=== PATIENT | female | born 1985 | race African-American/Black ===

== ENCOUNTER → 2024-07-09 | Outpatient (CLI) | payer OTHER | LOC: M EKG 08:21 | PROVIDERS: ATTEND Internal Medicine | DX: R00.0 Tachycardia, unspecified (principal); R00.1 Bradycardia, unspecified ==

== ENCOUNTER → 2024-09-01 | Outpatient (CLI) | payer OTHER ==
[~2024-09-01] MED LIST: PROHANCE 279.3MG/ML 15ML VIAL ONE; PROHANCE 279.3MG/ML 5ML VIAL ONE
== END ==
LOC: EDUNIT# 07-27 13:00 → M PLAIMG 09:50
PROVIDERS: ATTEND Internal Medicine
DX: D25.9 Leiomyoma of uterus, unspecified (principal)

== ENCOUNTER 2024-09-16 14:47 | Outpatient (CLI) | payer OTHER ==
[~2024-09-16] VITALS: Ht 167.6 cm; Wt 95.9 kg
[~2024-09-16 14:47] MED LIST changes: +ALBUTEROL SULFATE 2.5MG/0.5ML INH NEB SOLN INH PRN; +EPINEPHrine INJ 1 MG/ML 1ML AMP IM PRN; -PROHANCE 279.3MG/ML 15ML VIAL ONE; -PROHANCE 279.3MG/ML 5ML VIAL ONE; +diphenhydrAMINE 50MG/ML VIAL IV PRN; +methylPREDNISolone 125MG 2ML VIAL IV PRN
[2024-09-16 15:00] VITALS: BP 123/57; O2SAT 100
[2024-09-16] MEDS ORDERED: NS (Normal Saline) 0.9% 1,000 ML IV SCH (15:00)
[2024-09-16] MEDS: FERRIC CARBOXYMALTOSE 750 MG (VIAL MATE) IN 100ML NS IV ONE (15:14)
== END 2024-09-16 15:50 ==
LOC: M INFU 14:47
PROVIDERS: ATTEND Internal Medicine
DX: D50.9 Iron deficiency anemia, unspecified (principal)
CPT/HCPCS: 96365; J1439

== ENCOUNTER 2024-09-26 15:25 | Outpatient (CLI) | payer OTHER ==
[~2024-09-26] VITALS: Ht 167.6 cm; Wt 96.4 kg
[~2024-09-26 15:25] MED LIST changes: +NS (Normal Saline) 0.9% 1,000 ML IV SCH
[2024-09-26 15:39] VITALS: BP 127/65; O2SAT 100
[2024-09-26] MEDS: FERRIC CARBOXYMALTOSE 750 MG (VIAL MATE) IN 100ML NS IV ONE (15:44)
[2024-09-26 16:04] VITALS: BP 125/71; O2SAT 100
== END 2024-09-26 16:05 | disposition home or self-care (01) ==
LOC: M INFU 15:25
PROVIDERS: ATTEND Internal Medicine
DX: D50.9 Iron deficiency anemia, unspecified (principal)
CPT/HCPCS: 96365; J1439

== ENCOUNTER 2024-10-20 17:05 | Emergency (ER) | payer OTHER ==
[~2024-10-20] VITALS: Ht 167.6 cm; Wt 96.3 kg
[2024-10-20 17:40] LABS: KETONE, URINE AUTO RFX NEGATIVE (NEGATIVE); LEUKOCYTE ESTERASE UR AUTO RFX NEGATIVE (NEGATIVE); MUCUS, URINE RFX SMALL (NEGATIVE); NITRITE, URINE AUTO RFX NEGATIVE (NEGATIVE); RBC, URINE AUTO RFX 7 /HPF (0-3); SQUAM EPITHELIAL CELL UR AURFX 4 /HPF (0-6); WBC, URINE AUTO RFX 1 /HPF (0-3)
[2024-10-20] MEDS ORDERED: ONDA-282 PO (21:05)
[2024-10-20] MEDS ORDERED: KETO10TAB PO (21:05)
[2024-10-20] MEDS: KETOROLAC 30 MG/ML 1ML VIAL IM ONE (21:13)
[2024-10-20] MEDS: ONDANSETRON 4MG ORAL DISINTEGRATING TAB PO ONE (21:13)
[2024-10-20 21:30] VITALS: BP 114/59; TEMP 100; O2SAT 97
== END 2024-10-20 21:38 | disposition home or self-care (01) ==
LOC: M ED 17:05 → EDBD 17:05 → M ED 21:38
DX: D25.9 Leiomyoma of uterus, unspecified (principal); B34.9 Viral infection, unspecified
CPT/HCPCS: 74176; 81001; 87486; 87581; 87633; 87798; 96372; 99284; J1885

== ENCOUNTER → 2024-11-23 | Outpatient (POV) | payer OTHER ==
[~2024-11-23] VITALS: Ht 167.6 cm; Wt 95.9 kg
[~2024-11-23] MED LIST changes: -ALBUTEROL SULFATE 2.5MG/0.5ML INH NEB SOLN INH PRN; -EPINEPHrine INJ 1 MG/ML 1ML AMP IM PRN; +KETO10TAB PO; -NS (Normal Saline) 0.9% 1,000 ML IV SCH; +ONDA-282 PO; -diphenhydrAMINE 50MG/ML VIAL IV PRN; -methylPREDNISolone 125MG 2ML VIAL IV PRN
[2024-11-23 15:05] VITALS: BP 116/72; O2SAT 100
== END ==
LOC: M IRPOV 14:43
PROVIDERS: ATTEND Radiology Diagnostic Radiology
DX: D25.9 Leiomyoma of uterus, unspecified (principal); N92.0 Excessive and frequent menstruation with regular cycle; N94.10 Unspecified dyspareunia; R39.15 Urgency of urination; Z98.51 Tubal ligation status

== ENCOUNTER → 2024-12-20 | Outpatient (CLI) | payer OTHER | LOC: M WHC 12:47 | PROVIDERS: ATTEND Internal Medicine | DX: Z12.31 Encounter for screening mammogram for malignant neoplasm of breast (principal); R92.333 Mammographic heterogeneous density, bilateral breasts; R92.8 Other abnormal and inconclusive findings on diagnostic imaging of breast ==

== ENCOUNTER → 2025-01-03 | Outpatient (CLI) | payer OTHER | LOC: M WHC 12:34 | PROVIDERS: ATTEND Internal Medicine | DX: R92.8 Other abnormal and inconclusive findings on diagnostic imaging of breast (principal); R92.333 Mammographic heterogeneous density, bilateral breasts; N60.12 Diffuse cystic mastopathy of left breast; N60.01 Solitary cyst of right breast | CPT/HCPCS: 76642; 77066; G0279 ==

== ENCOUNTER 2025-04-17 10:55 | Outpatient (CLI) | payer OTHER ==
[~2025-04-17] VITALS: Ht 167.6 cm; Wt 98.6 kg
[~2025-04-17 10:55] MED LIST changes: +ALBUTEROL SULFATE 2.5 MG/0.5 ML INH CONCENTRATE NEB SOLN INH PRN; +EPINEPHrine INJ 1 MG/ML 1ML AMP IM PRN; +diphenhydrAMINE 50 MG/ML VIAL IV PRN
[2025-04-17 11:10] VITALS: BP 121/60; O2SAT 100
[2025-04-17] MEDS: FERRIC CARBOXYMALTOSE 750 MG (VIAL MATE) IN 100ML NS IV ONE (11:12)
[2025-04-17 11:46] VITALS: BP 129/58; O2SAT 98
== END 2025-04-17 12:00 | disposition home or self-care (01) ==
LOC: M INFU 10:55
PROVIDERS: ATTEND Internal Medicine
DX: D50.9 Iron deficiency anemia, unspecified (principal)
CPT/HCPCS: 96365; J1439

== ENCOUNTER 2025-04-24 09:34 | Outpatient (CLI) | payer OTHER ==
[~2025-04-24] VITALS: Ht 167.6 cm; Wt 101.4 kg
[2025-04-24 09:45] VITALS: BP 130/60; O2SAT 98
[2025-04-24] MEDS: FERRIC CARBOXYMALTOSE 750 MG (VIAL MATE) IN 100ML NS IV ONE (09:58)
[2025-04-24 10:30] VITALS: BP 137/68; O2SAT 100
== END 2025-04-24 10:30 | disposition home or self-care (01) ==
LOC: M INFU 09:34
PROVIDERS: ATTEND Internal Medicine
DX: D50.9 Iron deficiency anemia, unspecified (principal)
CPT/HCPCS: 96365; J1439

== ENCOUNTER → 2025-07-19 | Outpatient (CLI) | payer OTHER ==
[~2025-07-19] MED LIST changes: -ALBUTEROL SULFATE 2.5 MG/0.5 ML INH CONCENTRATE NEB SOLN INH PRN; -EPINEPHrine INJ 1 MG/ML 1ML AMP IM PRN; -diphenhydrAMINE 50 MG/ML VIAL IV PRN
== END ==
LOC: M WHC 08:39
PROVIDERS: ATTEND Internal Medicine
DX: R92.8 Other abnormal and inconclusive findings on diagnostic imaging of breast (principal); N63.10 Unspecified lump in the right breast, unspecified quadrant

== ENCOUNTER 2025-07-28 14:51 | Outpatient (CLI) | payer OTHER ==
[~2025-07-28] VITALS: Ht 165.1 cm; Wt 100.0 kg
[2025-07-28 14:45] VITALS: BP 138/60; O2SAT 100
[~2025-07-28 14:51] MED LIST changes: +ALBUTEROL SULFATE 2.5 MG/0.5 ML INH CONCENTRATE NEB SOLN INH PRN; +EPINEPHrine INJ 1 MG/ML 1ML AMP IM PRN; +diphenhydrAMINE 50 MG/ML VIAL IV PRN
[2025-07-28] MEDS: FERRIC CARBOXYMALTOSE 750 MG (VIAL MATE) IN 100ML NS IV ONE (14:57)
[2025-07-28 15:20] VITALS: BP 114/58; O2SAT 100
== END 2025-07-28 15:20 ==
LOC: M INFU 14:51
PROVIDERS: ATTEND Internal Medicine Medical Oncology
DX: D50.9 Iron deficiency anemia, unspecified (principal)
CPT/HCPCS: 96365; J1439

== ENCOUNTER 2025-08-04 11:45 | Outpatient (CLI) | payer OTHER ==
[~2025-08-04] VITALS: Ht 165.1 cm; Wt 102.3 kg
[2025-08-04 11:45] VITALS: BP 128/61; O2SAT 100
[2025-08-04] MEDS ORDERED: NS (Normal Saline) 0.9% 1,000 ML IV SCH (12:00)
[2025-08-04] MEDS: FERRIC CARBOXYMALTOSE 750 MG (VIAL MATE) IN 100ML NS IV ONE (12:01)
[2025-08-04 12:35] VITALS: BP 126/58; O2SAT 100
== END 2025-08-04 12:35 | disposition home or self-care (01) ==
LOC: M INFU 11:45
PROVIDERS: ATTEND Internal Medicine Medical Oncology
DX: D50.9 Iron deficiency anemia, unspecified (principal)
CPT/HCPCS: 96365; J1439